=== PATIENT | female | born 1995 | race Hispanic/Latino ===

== ENCOUNTER 2023-11-22 13:53 | Observation (INO) | payer OTHER ==
[2023-11-22] MEDS ORDERED: Ondansetron PF 4 MG/2 ML Vial ONE (14:23)
[2023-11-22] MEDS ORDERED: Morphine 4 MG/ML VIAL ONE (14:23)
[2023-11-22 14:30] LABS: Hematocrit 33.7 % (36.0-47.0); Hemoglobin 10.6 g/dL (12.0-16.0); Mean Corpuscular HGB CONC 31.5 g/dL (32.0-36.0); Mean Corpuscular Volume 73.1 fL (78.0-98.0); Mean Platelet Volume 10.2 fL (7.4-10.4); Platelet Count 327 10x3/uL (130-400); RBC Distribution Width 17.3 % (11.5-14.5); Red Blood Cell (RBC) Count 4.61 mill/uL (4.20-5.40)
[2023-11-22 14:31] LABS: BHCG - Serum Negative (NEGATIVE); Pregs Control Background? CLEAR/WHITE (CLR/WHITE); Pregs Control Bar Appear? YES (CONTROL BAR)
[2023-11-22 14:37] LABS: ALT (SGPT) 13 U/L (8-55); AST (SGOT) 14 U/L (5-34); Albumin 3.9 g/dL (3.5-5.0); Alkaline Phosphatase 106 U/L (40-110); Anion Gap 16 mmol/L (10-20); BUN (Urea Nitrogen) 6 mg/dL (7.0-18.7); Bilirubin, Total 0.2 mg/dL (0.2-1.2); Calc. Creatinine Clearance 0 mL/min (70-130); Calcium 10.1 mg/dL (7.8-10.44); Carbon Dioxide 22 mmol/L (22-29); Chloride 105 mmol/L (98-107); Estimated GFR 114; Globulin 3.8 g/dL (2.4-3.5); Glucose 118 mg/dL (70-105); Lipase 24 U/L (8-78); Potassium 4.4 mmol/L (3.5-5.1); Protein, Total 7.7 g/dL (6.0-8.3); Sodium 139 mmol/L (136-145)
[2023-11-22 14:43] LABS: Bilirubin Negative (Negative); Blood, Urine Negative (Negative); CAUTI Indications for Culture Pelvic or flank pain; Clarity Clear (Clear); Glucose, Urine (Dipstick) Normal (Negative); Ketone, Urine Negative (Negative); Leukocyte 250 Leu/uL (Negative); Nitrite Negative (Negative); Protein, Urine (Dipstick) Negative (Neg-Trace); RBC/HPF 0-3 HPF (0-3); Specific Gravity, Urine 1.013 (1.002-1.036); Urobilinogen Normal mg/dL (Less than 2)
[2023-11-22 14:44] LABS: Bacteria/HPF Rare-Few HPF (None Seen); Urine Culture Reflex No No
[2023-11-22 14:55] LABS: Eosinophils 2 % (0-10); Hypochromia SLIGHT = 6-15 cells HPF (0-5); Lymphocytes 28 % (21-51); Microcytosis SLIGHT = 6-15 cells HPF (0-5); Monocytes 3 % (0-10); Neutrophil 67 % (42-75); Ovalocytes SLIGHT = 2-5 cells HPF (0-1); Platelet Adequacy Comment Platelets Normal; Polychromasia SLIGHT = 2-3 cells HPF (0-2); Schistocytes SLIGHT = 2-5 cells HPF (0-1)
[2023-11-22] MEDS ORDERED: Ipratropium/Albuterol 3 ML NEB NEB PRN (16:28)
[2023-11-22] MEDS ORDERED: traMADol HCl 50 MG TAB PO PRN (16:33)
[2023-11-22] MEDS: Acetaminophen 325 MG TAB PO SCH (19:44)
[2023-11-22] MEDS: traMADol HCl 50 MG TAB PO SCH (19:45)
[2023-11-22] MEDS: Sodium Chloride 0.9% 1,000 ML IV SCH (19:46)
[2023-11-22] MEDS: Famotidine/PF 20 mg/2ml Vial SLOW IVP SCH (19:46)
[2023-11-22 20:02] VITALS: BMI 44.2
[2023-11-22] MEDS: Morphine 2 MG/ML VIAL SLOW IVP PRN (21:36)
[2023-11-22] MEDS: Ondansetron PF 4 MG/2 ML Vial IVP PRN (21:59)
[2023-11-23 05:23] LABS: #Basophils 0.03 10x3/uL (0.0-0.2); %Basophils 0.3 % (0.0-1.0); %Lymphocytes 27.2 % (21.0-51.0); %Monocytes 6.5 % (0.0-10.0); %Neutrophils 64.8 % (42.0-75.0); Hematocrit 33.2 % (36.0-47.0); Hemoglobin 10.1 g/dL (12.0-16.0); Mean Corpuscular HGB CONC 30.4 g/dL (32.0-36.0); Mean Corpuscular Hemoglobin 22.6 pg (27.0-31.0); Mean Corpuscular Volume 74.4 fL (78.0-98.0); Mean Platelet Volume 10.4 fL (7.4-10.4); Platelet Count 300 10x3/uL (130-400); RBC Distribution Width 17.3 % (11.5-14.5); Red Blood Cell (RBC) Count 4.46 mill/uL (4.20-5.40)
[2023-11-23 05:43] LABS: ALT (SGPT) 18 U/L (8-55); AST (SGOT) 22 U/L (5-34); Albumin 3.4 g/dL (3.5-5.0); Alkaline Phosphatase 87 U/L (40-110); Anion Gap 12 mmol/L (10-20); BUN (Urea Nitrogen) 6 mg/dL (7.0-18.7); Bilirubin, Total 0.4 mg/dL (0.2-1.2); Calc. Creatinine Clearance 217 mL/min (70-130); Carbon Dioxide 23 mmol/L (22-29); Chloride 107 mmol/L (98-107); Estimated GFR 123; Globulin 3.3 g/dL (2.4-3.5); Glucose 87 mg/dL (70-105); Potassium 3.8 mmol/L (3.5-5.1); Protein, Total 6.7 g/dL (6.0-8.3); Sodium 138 mmol/L (136-145)
[2023-11-23] MEDS ORDERED: EPINEPHrine 1 MG/ML VIAL ONE (06:57)
[2023-11-23] MEDS ORDERED: Bupivacaine PF 0.5% 30 ML VIAL ONE (06:57)
[2023-11-23] MEDS ORDERED: Ondansetron PF 4 MG/2 ML Vial ONE (07:00)
[2023-11-23] MEDS ORDERED: Glycopyrrolate 0.2 MG/ML 5 ML SYRINGE ONE (07:00)
[2023-11-23] MEDS ORDERED: Lidocaine 1% PF 5 ML VIAL ONE (07:00)
[2023-11-23] MEDS ORDERED: PROPOFOL 20 ML ONE (07:00)
[2023-11-23] MEDS ORDERED: Midazolam HCl 2 mg/2 ml Vial ONE (07:00)
[2023-11-23] MEDS ORDERED: Rocuronium Bromide 10 MG/ML (10ML VIAL) ONE (07:00)
[2023-11-23] MEDS ORDERED: SUGAMMADEX SODIUM 200 MG/2 ML VIAL ONE (07:00)
[2023-11-23] MEDS ORDERED: Dexamethasone 20 MG/5 ML VIAL ONE (07:00)
[2023-11-23] MEDS ORDERED: fentaNYL PF 100 MCG/2 ML SYRINGE ONE (07:00)
[2023-11-23] MEDS ORDERED: PHENYLEPHRINE-NS 100 MCG/ML 10 ML SYRINGE ONE (07:00)
[2023-11-23] MEDS ORDERED: CEFAZOLIN 2 GM VIAL ONE (07:23)
[2023-11-23] MEDS ORDERED: Sodium Chloride 0.9% 100 ML ONE (07:23)
[2023-11-23] MEDS ORDERED: Fentanyl 250 MCG/5 ML VIAL ONE (09:05)
[2023-11-23] MEDS ORDERED: Non-Formulary Medication 1 EACH PO PRN (09:29)
[2023-11-23] MEDS ORDERED: Promethazine HCl 25 MG/ML VIAL IM PRN (09:30)
[2023-11-23] MEDS ORDERED: Ondansetron HCl/PF 4 MG/2 ML Vial IVP PRN (09:30)
[2023-11-23] MEDS ORDERED: Meperidine HCl/PF 25 MG/ML VIAL IV PRN (09:30)
[2023-11-23] MEDS ORDERED: Meperidine HCl/PF 25 MG (1 mL) VIAL ONE (09:31)
[2023-11-23 17:24] VITALS: BP 107/73
[2023-11-23 17:26] VITALS: TEMP 97.8
== END 2023-11-23 16:12 ==
LOC: ERS 13:53 → SURG A 16:32 → EEVIPCON 16:32
PROVIDERS: ADMIT Student in an Organized Health Care Education/Training Program; ATTEND Student in an Organized Health Care Education/Training Program
PROC: 0FT44ZZ Resection of Gallbladder, Percutaneous Endoscopic Approach (ICD-10-PCS; principal; 2023-11-23)
DX: K80.12 Calculus of gallbladder with acute and chronic cholecystitis without obstruction (principal); E11.9 Type 2 diabetes mellitus without complications; Z79.84 Long term (current) use of oral hypoglycemic drugs
CPT/HCPCS: 36415; 76705; 80053; 81001; 83690; 84703; 85025; 88304; 96374; 96375; 96376; C1889; G0378; J0171; J0665; J1100; J2175; J2250; J2270; J2272; J2405; J2704; J3010; J3490; J7050; S0028